=== PATIENT | male | born 1955 | race Caucasian/White ===

== ENCOUNTER → 2020-09-10 | Outpatient (CLI) | payer BC ==
--- NOTE | 2020-09-10 12:06 | Diagnostic Imaging Report ---
Chest, 2 views, 09/10/2020. History: Pneumonia follow-up. Comparison: None available. Findings: The cardiomediastinal silhouette and pulmonary vasculature are within normal limits. Ill-defined patchy opacities are present throughout both lungs, with a slight peripheral predominance. There is no evidence of pleural effusion. There are no acute osseous or soft tissue abnormalities. Impression: Findings consistent with bilateral atypical/viral pneumonia. Signed by: Edgardo Ramos on 09/10/2020 12:03 PM
== END ==
LOC: RAD 11:19
PROVIDERS: ATTEND Family Medicine
DX: Z09 Encounter for follow-up examination after completed treatment for conditions other than malignant neoplasm (principal); J18.9 Pneumonia, unspecified organism
CPT/HCPCS: 71046